=== PATIENT | male | born 1965 | race Caucasian/White ===

== ENCOUNTER → 2017-10-08 | Outpatient (CLI) | payer OTHER ==
[~2017-10-08] MED LIST: AMOCLA875 PO; DESV50 PO; GENT.3OPSA OS; NAPR500 PO; OXYACE5T PO
[2017-10-08 18:12] LABS: BASOPHILS ABSOLUTE AUTO 0.02 K/mm3 (0.00-0.23); BASOPHILS PERCENT AUTO 0 % (0-2); EOSINOPHILS ABSOLUTE AUTO 0.18 K/mm3 (0.00-0.68); EOSINOPHILS PERCENT AUTO 4 % (0-6); Hematocrit 39.2 % (37.0-53.0); Hemoglobin 13.3 g/dL (13.5-17.5); IMMATURE GRAN ABSOLUTE AUTO 0.01 K/mm3 (0.00-0.10); IMMATURE GRAN PERCENT AUTO 0 % (0-1); LYMPHOCYTES ABSOLUTE AUTO 1.38 K/mm3 (0.84-5.20); LYMPHOCYTES PERCENT AUTO 27 % (21-46); MONOCYTES ABSOLUTE AUTO 0.53 K/mm3 (0.16-1.47); MONOCYTES PERCENT AUTO 10 % (4-13); Mean Corpuscular HGB 30.9 pg (26.0-34.0); Mean Corpuscular HGB Conc 33.9 g/dL (31.5-36.5); Mean Corpuscular Volume 91 fL (80-100); NEUTROPHILS ABSOLUTE AUTO 2.99 K/mm3 (1.96-9.15); NEUTROPHILS PERCENT AUTO 59 % (41-73); Platelet Count 222 K/mm3 (150-400); RDW Coefficient Variation 12.2 % (11.7-14.2); RDW Standard Deviation 40.5 fL (35.1-46.3); Red Blood Cell Count 4.31 M/mm3 (4.30-5.90); White Blood Cell Count 5.11 K/mm3 (4.00-11.30)
[2017-10-08 18:41] LABS: Free Thyroxine 0.81 ng/dL (0.70-1.60)
[2017-10-08 18:42] LABS: Alanine Aminotransfer (ALT/SGP 41 U/L (12-78); Albumin, Blood 3.8 g/dL (3.4-5.0); Albumin/Globulin Ratio 1.2 (0.8-1.8); Alk Phos 85 U/L (50-136); Anion Gap 7 mmol/L (6-16); Aspartate Aminotrans (AST/SGOT 23 U/L (12-37); Bilirubin, Total 0.2 mg/dL (0.1-1.0); Blood Urea Nitrogen 12 mg/dL (8-24); CO2, Blood 29 mmol/L (21-32); Calcium, Blood 8.8 mg/dL (8.5-10.1); Chloride, Blood 106 mmol/L (98-108); Globulin, Blood 3.2 g/dL (2.2-4.0); Glomerular Filtration Rate >60 (60-); Glucose, Blood 96 mg/dL (70-99); Potassium, Blood 3.5 mmol/L (3.5-5.5); Sodium, Blood 142 mmol/L (136-145)
[2017-10-08 18:47] LABS: Thyroid Stimulating Hormone 0.748 uIU/mL (0.360-4.800)
[2017-10-09 09:13] LABS: CHOL/HDL RATIO 5.5; Cholesterol 175 mg/dL (50-200); HDL Cholesterol 32 mg/dL (>39); Low Density Lipoprotein Chol 95 mg/dL (0-110); Triglycerides 241 mg/dL (30-160); Very Low Density Lipoprot Chol 48 mg/dL (6-32)
== END ==
LOC: LAB SHORT 12:50
PROVIDERS: Nurse Practitioner Adult Health
DX: E78.5 Hyperlipidemia, unspecified (principal); F41.8 Other specified anxiety disorders; H91.91 Unspecified hearing loss, right ear; H93.11 Tinnitus, right ear; I10 Essential (primary) hypertension
CPT/HCPCS: 80053; 80061; 84439; 84443; 85025

== ENCOUNTER 2018-06-19 02:08 | Emergency (ER) | payer OTHER ==
[~2018-06-19] VITALS: Ht 185.4 cm; Wt 95.2 kg
[2018-06-19] MEDS ORDERED: ZOLP10 PO (02:31)
[2018-06-19] MEDS ORDERED: METPHE5 (02:31)
[2018-06-19] MEDS ORDERED: QUET25 (02:31)
[2018-06-19] MEDS ORDERED: TADA10TA (02:32)
== END 2018-06-19 03:44 | disposition home or self-care (01) ==
LOC: ER 02:08
DX: M25.562 Pain in left knee (principal); Z79.899 Other long term (current) drug therapy; F17.200 Nicotine dependence, unspecified, uncomplicated
CPT/HCPCS: 73562-LT; 93971; 99284-25

== ENCOUNTER 2018-07-21 09:50 | Emergency (ER) | payer OTHER ==
[~2018-07-21] VITALS: Ht 185.4 cm; Wt 98.9 kg
[~2018-07-21 09:50] MED LIST changes: +METPHE5; +QUET100 PO; +TADA10TA; +ZOLP10 PO
[2018-07-21] MEDS ORDERED: DEPLIN-ALGAL O1 EAC1 PO (10:21)
[2018-07-21] MEDS ORDERED: FISH OIL 1,0001 EAC1 PO (10:23)
[2018-07-21] MEDS ORDERED: PRED5 PO (10:24)
[2018-07-21] MEDS ORDERED: COLCHICINE0.6 MG PO (11:08)
[2018-07-21] MEDS ORDERED: Prednisone10 MG PO (11:08)
== END 2018-07-21 11:13 | disposition home or self-care (01) ==
LOC: ER 09:50
DX: M11.212 Other chondrocalcinosis, left shoulder (principal); M11.211 Other chondrocalcinosis, right shoulder; Z79.899 Other long term (current) drug therapy; Z79.52 Long term (current) use of systemic steroids; Z87.891 Personal history of nicotine dependence
CPT/HCPCS: 99283

== ENCOUNTER 2018-10-07 16:45 | Emergency (ER) | payer OTHER ==
[~2018-10-07] VITALS: Ht 185.4 cm; Wt 95.2 kg
[~2018-10-07 16:45] MED LIST changes: +COLCHICINE0.6 MG PO; +DEPLIN-ALGAL O1 EAC1 PO; +FISH OIL 1,0001 EAC1 PO; +PRED5 PO; +Prednisone10 MG PO
== END 2018-10-07 18:06 | disposition home or self-care (01) ==
LOC: ER 16:45
DX: M25.441 Effusion, right hand (principal); Z79.899 Other long term (current) drug therapy; Z79.52 Long term (current) use of systemic steroids; Z87.891 Personal history of nicotine dependence
CPT/HCPCS: 99282

== ENCOUNTER 2021-04-09 10:09 | Day surgery (SDC) | payer OTHER ==
[~2021-04-09] VITALS: Ht 185.4 cm; Wt 97.4 kg
[2021-04-09] MEDS ORDERED: L-METHYLFOLATE15 MG (11:08)
[2021-04-09] MEDS ORDERED: TURMERIC500 M2 (11:09)
--- NOTE | 2021-04-09 11:19 | NUR ---
04/09/21 Lakia Henson PT IN ROOM WITH PT, HELPED VERIFY MEDICATION.
== END 2021-04-09 15:30 | disposition home or self-care (01) ==
LOC: ORSCSDS 10:09
PROVIDERS: Orthopaedic Surgery
PROC: 0PSJ04Z Reposition Left Radius with Internal Fixation Device, Open Approach (ICD-10-PCS; principal; 2021-04-09 11:15)
DX: S52.302A Unspecified fracture of shaft of left radius, initial encounter for closed fracture (principal); S52.042A Displaced fracture of coronoid process of left ulna, initial encounter for closed fracture; F17.210 Nicotine dependence, cigarettes, uncomplicated; I10 Essential (primary) hypertension; E78.5 Hyperlipidemia, unspecified; G47.33 Obstructive sleep apnea (adult) (pediatric); Z79.899 Other long term (current) drug therapy
CPT/HCPCS: A9270; C1713; J0690; J1100; J2250; J2405; J2704; J3010; J7120